=== PATIENT | female | born 1985 | race Caucasian/White ===

== ENCOUNTER → 2020-03-30 09:02 | Outpatient (CLI) | payer MEDICAID, SELFPAY ==
[2020-03-30 08:02] VITALS: BMI 28.5
[2020-03-30 10:52] LABS: Absolute Lymphocyte Count 1.86 X10^3/uL (0.83-4.51); Absolute Neutrophil Count 6.4 X10^3/uL (2.0-7.7); Basophil# 0.02 X10^3/uL; Basophil% 0.2 % (0-1); Eosinophil# 0.11 X10^3/uL; Eosinophils% 1.2 % (0-5); Hematocrit 41.4 % (37-47); Hemoglobin 13.2 g/dL (12.0-15.0); Lymphocyte # 1.86 X10^3/ul (4.0); Lymphocyte % 20.8 % (19-41); Mean Corp Hgb Conc 31.9 g/dL (32-36); Mean Corpuscular Hgb 27.9 pg (27.0-32.0); Mean Corpuscular Volume 87.5 fL (81-99); Mean Platelet Vol. 11.3 fl (6.2-12.0); Monocyte% 5.6 % (0-10); NRBC Flagged by Analyzer 0 % (0-5); Neutrophil # 6.44 X10^3/uL (2.7-7.7); Neutrophil % 71.9 % (47-70); Platelet Count 266 K/mm3 (150-450); RBC Distribution Width SD 40.9 fl (35.1-43.9); Red Blood Count 4.73 M/mm3 (4.2-5.4)
== END ==
PROVIDERS: PCP Family Medicine; Referring Provider Obstetrics & Gynecology; Visit Provider Obstetrics & Gynecology
DX: N93.9 Abnormal uterine and vaginal bleeding, unspecified (principal)
CPT/HCPCS: 36415; 85025

== ENCOUNTER 2020-05-08 07:27 | Day surgery (SDC) | payer MEDICAID, SELFPAY ==
[2020-03-30 08:02] VITALS: BMI 28.5
[2020-05-01 15:37] VITALS: BMI 28.5
--- NOTE | 2020-05-07 17:10 | PCM.HPOB.BLA ---
- Problem List (1) Abnormal uterine bleeding Status: Acute Comment: discussed medical vs surgical options. plan LAVH RSO cysto, SDS (2) Family history of ovarian cancer Status: Acute Comment: discussed and recommend oophorectomy due to two second degree relatives with ovarian cancer. discussed increased risk of HD, potentially reduced lifespan, plan HRT after surgery and patient wishes to proceed. History and Physical Date of Admission: 05/08/20 Intake Vital Signs 05/01/20 Height 5 ft 4 in 05/01/20 Weight: 166 lb 2 oz 05/01/20 BMI 28.5 05/01/20 BP 128/80 H 05/01/20 BMI 28.5 Intake Visit Reasons: pre op Chief Complaint: pre op LAVH Right Salpingooprectomy cystectomy Occupational Rehabilitation Aide Required: No Is patient in pain?: No Allergies No Known Allergies Allergy (Verified 05/01/20 15:38) Medications multivitamin,[id number] 1 tab PO DAILY 05/01/20 [History Confirmed 05/01/20] Is last menstrual period known: No Post menopausal: No Patient : No : No PFSH Medical History (Updated 05/01/20 @ 15:[address] Clarisa [address] MD) PRISCILLA I (cervical intraepithelial neoplasia I) (Acute) Abnormal colonoscopy (Acute) Abnormal uterine bleeding (AUB) (Acute) Anemia (Acute) H/O transfusion of whole blood (Acute) Mass of colon (Acute ~2017) Mass of ovary (Acute) Ovarian cyst (Acute) Surgical History delivery delivered (Acute) H/O dilation and curettage (Acute) H/O oophorectomy (Acute ~01/2010) Family History Grandmother Cancer cervical and ovarian cancer Grandmother Cancer cervical, uterine and ovarian Social History (Updated 05/01/20 @ 15:[address] Clarisa [address] MD) adopted: No household members: family number of children: 2 current occupation: self employed pets and animals: Yes history of recent travel: No sexually active: Yes Smoking Status: Never smoker second hand exposure: No alcohol intake: never substance use type: does not use seatbelt use: always do you feel safe at home: Yes additional social history: - Rudy HPI pre op: Details: GLADYS STEPHENSON is a 34 year old who presents for preop visit. she is having a LAVH due to abnormal bleeding and oophorectomy due to cyst and family history of ovarian cancer. Pregancy History 2 Elective abortions Hx Para 2 Spontaneous abortions Hx # Term Pregnancies Ectopic pregnancies Hx # Pregnancies Multiple births # of living children 2 Past Pregnancies Del. Date Name GA/Weeks Outcome Route Bth Weight Gen Labor Lgth Anesthesia Del Locatn Provider FOB Unknown 03/01/2013 Jaden 39 live - full term vacuum 9lbs 10oz Male none Darling Grant Unknown 08/22/14 Radha 37 live - full term 9lbs 9oz Female spinal Darling Grant Delivery Date: On 03/30/20 @ 08:13 Jennyfer Diallo Vacuum delivery; 4 degree tear Delivery Date: No notes to display ROS Const Constitutional: Reports fatigue; denies fever(s), headache(s), increased appetite, poor appetite, weight gain or weight loss ENT ENT: Denies dizziness or dry mouth Cardio Card: Denies chest pain Resp Resp: Denies cough or dyspnea GI GI: Reports as per HPI and abdominal pain; denies constipation, nausea or vomiting : Reports as per HPI and urinary frequency; denies difficulty urinating, painful urination, pelvic pain, urinary incontinence, urinary hesitancy, urinary urgency, vaginal discharge, vaginal dryness, vaginal odor or vaginal itching Musc Musc: Denies joint pain, back pain or muscle weakness Skin Skin/Breast: Denies hair loss, change in hair, dry skin, breast lump, breast pain or breast skin changes Neuro Neuro: Denies dizziness Psych Psych: Denies anxiety or depression Endo Endo: Denies cold intolerance, excessive sweating, heat intolerance or increased thirst Frankie/Lymph Hematologic/Lymphatic: Denies easy bleeding, Denies easy bruising, Denies enlarged lymph nodes Exam Const General: cooperative, healthy appearing, comfortable, no acute distress, well developed Nutritional Appearance: average body habitus Orientation: alert [facility] Head: normal to inspection, normocephalic Ears: hearing grossly normal bilaterally, external ears normal Nose: external nose normal, nares normal Face and sinus: normal facial exam Neck Neck: normal visual inspection, no lymphadenopathy, trachea midline Thyroid: thyroid normal Chest Chest palpation & inspection: normal inspection of the chest Resp Effort & Inspection: normal respiratory effort Auscultation: clear to auscultation bilaterally Cardio Rate: regular rate Rhythm: regular rhythm Heart Sounds: S1 normal, S2 normal GI Inspection: normal to inspection, non-distended Palpation: soft, no hepatosplenomegaly General: bladder normal to palpation External Female Exam: normal external appearance, normal appearance of the urethra Urethra: normal appearance of the urethra Speculum Exam - Vagina: normal appearance of the vagina, normal vaginal discharge Speculum Exam - Cervix: normal appearance of the cervix, nontender Bimanual Exam- Vagina & Uterus: bladder normal to palpation, No cervical tenderness Bimanual Exam- Adnexa, other: normal adnexae, adnexae mobile, no adnexal masses, pelvic support normal Pelvic Support: normal Musc Cervical Spine: other Other: gross motor intact no deficits, full bilateral strength Skin General: no rashes or lesions noted Neuro General: alert, awake, moves all extremities, no focal motor deficits Motor: muscle tone normal throughout Extrem General: normal to inspection, no pedal edema Psych Appearance: grossly normal Mental Status: mental status grossly normal Affect: normal affect Speech and Movement: speech and movement normal Assessment & Plan Problems 1. Abnormal uterine bleeding N93.9 discussed medical vs surgical options. plan LAVH RSO cysto, SDS 2. Family history of ovarian cancer Z80.41 discussed and recommend oophorectomy due to two second degree relatives with ovarian cancer. discussed increased risk of HD, potentially reduced lifespan, plan HRT after surgery and patient wishes to proceed. Plan After discussing the patient's diagnosis and treatment plan options, patient wishes to proceed with surgical management. I have discussed with the patient the risks, benefits, and alternatives of the procedure which include but are not limited to risks of anesthesia, bleeding, infection, possible damage to bowel, bladder, or surrounding vasculature which could lead to additional surgery to evaluate any complications. Patient agrees to procedure and wishes to proceed. ACOG/uptodate references given for additional information regarding procedure. Coding Level of Care Code No Charge Diagnoses Abnormal uterine bleeding N93.9 Family history of ovarian cancer Z80.41 UPDATE- I have seen the patient and performed any clinically relevant updates to the history and physical exam. Clarisa Way MD
[2020-05-08] VITALS (14 sets, daily range): BP systolic 100–124; BP diastolic 57–77; PULSE 68–92; RESP 14–16; TEMP 36.6–37.4; O2SAT 98–100; BMI 28.8
--- NOTE | 2020-05-08 | HYST_PTH ---
PATIENT: GLADYS STEPHENSON LOC: [facility] [place] U#:[id number] AGE/SX: 34/F ROOM: RE05/08/[address]: Dr. Clarisa Way MD : 1985 BED: DIS: 05/08/2020 SPEC #: [id number] RECD: 05/08/20 14:06 STATUS: ÁLVARO CUCO #: [id number] BEBETO: 05/08/20 00:[address]: Clarisa Way DEPT: SURGICAL PATHOLOGY RECD BY: Darien uGtierres ENTERED: 05/08/20 14:06 SP TYPE: HYSTERECT OTHR DR: MD Dr. Osman Fuentes MD Tissues: Uterus, NOS Procedures: Surgery Specimen Level V HEADER OPERATION: ERAS, hysterectomy, LAVH, right salpingo-oophorectomy, cysto PRE-OP DIAGNOSIS: Abnormal uterine bleeding TISSUE SUBMITTED: Uterus, right fallopian tube and ovary MICROSCOPIC DIAGNOSIS Uterus, right fallopian tube and ovary, hysterectomy and bilateral salpingo-oophorectomy: Cervix - mild chronic cystic cervicitis. Endometrium - secretory endometrium. Myometrium - focal superficial adenomyosis. Right fallopian tube - no pathologic diagnosis. Right ovary - physiologic follicular cysts and corpus luteum. SJ:jose 05/09/20 MICROSCOPIC DESCRIPTION Slides are reviewed. GROSS DESCRIPTION Received in fixative is one container labeled with the patient's name and designated uterus, right fallopian tube and ovary. The specimen consists of a hysterectomy specimen consisting of uterus with cervix and attached right fallopian tube and ovary. The uterus with cervix weighs 151 gm and measures 10.5 x 7.5 x 5 cm. The serosal surface is conway, glistening. The ectocervical mucosa is unremarkable. The external os is circular in contour. The endocervical canal measures 3.5 cm in length and the endocervical mucosa is conway, glistening and unremarkable. The triangular endometrial cavity measures 5 cm in length and up to 3.5 cm in width. The endometrium is conway, glistening and measures up to 0.5 cm in thickness. Section of the uterine wall does not reveal any mass lesion and it measures up to 0.5 cm in thickness. The right fallopian tube measures 6 cm in length and 0.6 cm in diameter. The fimbrial end is identified. The proximal portion of the fallopian tube shows a Filshie clip that appears intact. The soft to cystic right ovary measures 5 x 3 x 3 cm. Section of the ovary reveal a corpus luteum measuring 2 cm in greatest dimension and multiple cysts filled with clear fluid, largest measuring 1 cm in greatest dimension. Dextrine Mixer sections are submitted in nine cassettes as follows: 1 - anterior cervix, 2 - posterior cervix, 3 & 4 - anterior uterine wall, 5 & 6 - posterior uterine wall, 7 - right fallopian tube, 8 & 9 - right ovary. / AMAURI:jose 05/08/20 TC:5 CPT: 43735
[2020-05-08] MEDS: dexAMETHasone 10 MG/ML Vial 8 MG IV (07:00)
[2020-05-08 08:02] LABS: Hematocrit 39.4 % (37-47); Hemoglobin 12.9 g/dL (12.0-15.0); Mean Corp Hgb Conc 32.7 g/dL (32-36); Mean Corpuscular Hgb 28.8 pg (27.0-32.0); Mean Corpuscular Volume 87.9 fL (81-99); Mean Platelet Vol. 11.2 fl (6.2-12.0); Platelet Count 184 K/mm3 (150-450); RBC Distribution Width CV 12.3 % (11.6-14.6); RBC Distribution Width SD 39.3 fl (35.1-43.9); Red Blood Count 4.48 M/mm3 (4.2-5.4); White Blood Count 5.7 K/mm3 (4.4-11.0)
[2020-05-08 08:10] LABS: Internal QC Validated? YES +Cl - CLEAR BKGD; Pregnancy, Urine Negative Negative
[2020-05-08 08:11] LABS: Magnesium 2.2 mg/dL (1.6-2.6)
[2020-05-08] MEDS: Phenazopyridine 95 MG Tablet 190 MG PO (08:25)
[2020-05-08] MEDS: Acetaminophen 500 MG Tablet 1000 MG PO ×2 (08:26→14:30)
[2020-05-08] MEDS: Celecoxib 200 MG Capsule 400 MG PO (08:26)
[2020-05-08] MEDS: Gabapentin 600 MG Tablet PO (08:26)
[2020-05-08] MEDS: Scopolamine 1mg/72hr Patch 1 PATCH TRANSDERM. (08:27)
[2020-05-08] MEDS: Enoxaparin 40 MG/0.4 ML Syringe SC (08:31)
[2020-05-08] MEDS: Lactated Ringers 1,000 ML 40 ML IV (09:00)
[2020-05-08 09:10] LABS: Bedside Glucose 104 mg/dL (70-110)
--- NOTE | 2020-05-08 09:30 | OP.PCM_ITS ---
Problem List (1) Abnormal uterine bleeding Status: Acute Comment: discussed medical vs surgical options. plan LAVH RSO cysto, SDS (2) Family history of ovarian cancer Status: Acute Comment: discussed and recommend oophorectomy due to two second degree relatives with ovarian cancer. discussed increased risk of HD, potentially reduced lifespan, plan HRT after surgery and patient wishes to proceed. Report of Operation Date of Procedure: 05/08/20 Pre-Operative Diagnosis: AUB, family history ovarian cancer Post-Operative Diagnosis: same Surgery/Procedure Performed:: lavh RSO cysto Description of Surgical Findings:: pelvic congestion, anterior scar tissue production cook: Alyssa Whitley Type of Anesthesia:: General Special Medications: flor Specimen's removed: uterus tube ovary Drains: clarke removed at the end of procedure Estimated Blood Loss (mL): 100 Fluids Replaced: crystalloid Description of Procedure: Patient received preoperative antibiotics and SCDs were on preoperatively. Patient was taken back to the operating room and placed in the dorsal lithotomy position. General anesthesia was induced and patient was prepped and draped in normal sterile fashion. Uterine manipulator was placed inside the uterus and Clarke catheter placed in the bladder. The umbilicus was grasped with towel clamps and an intraumbilical incision was made after injecting with quarter percent Marcaine and a Veress needle entered into the abdomen confirmed to be intra-abdominal with a low opening pressure. Abdomen was insufflated with CO2 gas and the Veress needle removed and the 5 mm trocar was placed under direct visualization without complication. Right and left lower quadrants were transilluminated and injected with quarter percent Marcaine and 5 mm ports placed under direct visualization. Pelvis was well visualized see operative findings for additional information. right ovary and fallopian tube was identified and transected with the LigaSure device across the IP ligament and then to the level of the utero-ovarian ligament which was also transected with the LigaSure device. The broad ligament was opened up by transecting the round ligament bilaterally and skeletonizing the uterine vessels bilaterally and creating a bladder flap using the LigaSure device. The uterine arteries were transected bilaterally with good visualization of the bladder and the ureters were seen to be inferior lateral to the operative area. Attention was then paid to the vaginal portion of the procedure and the cervix was grasped with Kathy clamps and circumferentially injected with dilute vasopressin. A circumferential incision was made and the vaginal mucosa was mobilized off poste riorly and the cul-de-sac entered into sharply and a longneck speculum placed. The anterior cul-de-sac was then identified and entered into sharply. The uterosacral ligaments were clamped cut and suture ligated with 0 Monocryl bilaterally followed by the cardinal ligaments which were clamped cut and suture ligated bilaterally with 0 Monocryl. The uterus serially descended and was removed without difficulty with minimal morcellation. Pelvic sidewall pedicles were checked and noted to have excellent hemostasis. The vaginal mucosa was reapproximated incorporating the posterior peritoneum. This was reapproximated using 0 Vicryl [id number]-by-unwdk sutures. Excellent hemostasis was noted. The cystoscopy was then performed and right ureteral strong spray was noted and the bladder was noted to have no abnormality or lesions seen. The left ureter was able to be visualized peristalsing or patent and therefore urogynecology was consulted for intraoperative stent placement which was done under direct visualization both laparoscopically and cystoscopy in the stent was placed easily and noted to be draining and lateral to the operative area seen laparoscopically. Clarke catheter was replaced and then attention paid to the abdominal portion of the procedure again. The pelvis and cul-de-sac was well visualized and no significant active bleeding noted but some raw areas were seen on the peritoneum and therefore Flor was applied. Pressure was taken down and the areas visualized and noted of excellent hemostasis. All ports were removed under direct visualization without complication and the abdomen was desufflated of air. The instruments removed from the abdomen and the vagina vaginal sweep was negative. Stent and catheter were removed without difficulty. Port sites on the abdomen were closed with 4-0 Monocryl interrupted sutures and Steri's and windows were applied. She was awoken and taken recovery in stable condition. Grafts/Implants Used: none - Complications none - Admit VTE Documentation VTE Present on Admission: No VTE Mechan Device Prophylaxis: SCD's VTE Pharm Prophylaxis ordered?: Yes Multi Select Codes - Urinary/Genital Urinary/Genital CPT Codes: 00041 Cystoscopy, 27618 LAVH+BS/O <250gr Uterus
--- NOTE | 2020-05-08 09:34 | PCM.DC.VHY ---
Discharge Diet: No Restrictions Discharge Activity: Return to Normal Activity, May Not Drive, May Shower May resume sexual activity in: 6-8 weeks Call your doctor if your incision/area has: Continuous Slow Oozing, Sudden Increased Bleeding, Increased Pain/ Swelling, Increased Redness, Foul Smelling Discharge Call your doctor if you observe: Fever of 101 or Higher, Inability to urinate, Inability to have a bowel movement, Using more than one pad per hour Allergies/Adverse Reactions: Allergies No Known Allergies Allergy (Verified 05/02/20 10:28) Medications to take at Discharge multivitamin,[id number] 1 tab PO DAILY 05/01/20 Naproxen [Naprosyn] 250 - 500 mg PO Q8H PRN PRN #30 tab 05/08/20 Oxycodone HCl/Acetaminophen [Percocet 5-325] 1 - 2 tablet PO Q6H PRN PRN 7 Days #15 tablet 05/08/20 The following prescriptions were given: Naproxen [Naprosyn] 250 - 500 mg PO Q8H PRN PRN #30 tab PRN Reason: MILD PAIN Transmission Status: Pending to [facility] Oxycodone HCl/Acetaminophen [Percocet 5-325] 1 - 2 tablet PO Q6H PRN PRN 7 Days #15 tablet PRN Reason: Pain Transmission Status: Sent to [facility] Primary Care Physician: Osman Taylor MD [Primary Care Provider] - Test Results: Test results from this visit will be discussed in further detail at your follow-up appointment, if applicable. Please Follow Up With: Clarisa Way MD - [phone]
[2020-05-08] MEDS: Cefazolin 2 GM in 0.9% Normal Saline 100 ML IV (09:50)
[2020-05-08] MEDS: Bupivacaine 0.25% 30 ML Vial (10:30)
[2020-05-08] MEDS: Vasopressin 20 UNITS/ML Vial (10:55)
[2020-05-08] MEDS: Lactated Ringers 1,000 ML 70 ML IV ×2 (11:15→12:00)
[2020-05-08] MEDS: Ketorolac 30 MG/ML Syringe IV ×2 (12:26→17:50)
[2020-05-08] MEDS: Ondansetron 4 MG/2 ML Vial IV (12:26)
--- NOTE | 2020-05-08 13:01 | PCM.OPRPT ---
Problem List (1) Family history of ovarian cancer Status: Acute Comment: discussed and recommend oophorectomy due to two second degree relatives with ovarian cancer. discussed increased risk of HD, potentially reduced lifespan, plan HRT after surgery and patient wishes to proceed. (2) Abnormal uterine bleeding Status: Acute Comment: discussed medical vs surgical options. plan LAVH RSO cysto, SDS Report of Operation Date of Procedure: 05/08/20 Pre-Operative Diagnosis: abnormal uterine bleeding Post-Operative Diagnosis: same Surgery/Procedure Performed:: cystoscopy, left ureteral catheterization Type of Anesthesia:: General Specimen's removed: none Description of Procedure: The patient is a 34-year-old female undergoing a hysterectomy laparoscopic assisted per Dr. Dave Glasgow. There is a question of the position of the left ureter and a request was placed for ureteral catheter insertion. A cystourethroscopy was performed with a 70 degree lens, through the urethra, revealing no evidence of bladder injury, foreign body or mucosal abnormality. The left ureteral orifice was easily identified and intubated with a 5 [place] whistle-tip catheter. It was easily inserted and was put into 20 cm. The ureter was identified through the laparoscope and was found to be intact. At this time the Wallace catheter was placed and my portion of the procedure was ended. The ureteral catheter was left to be removed with the Wallace catheter. - Complications none - Admit VTE Documentation VTE Present on Admission: Yes VTE Mechan Device Prophylaxis: SCD's
[2020-05-08] MEDS: oxyCODONE 5 MG Tablet PO ×2 (14:30→15:42)
[2020-05-08 15:17] LABS: Hematocrit 37.7 % (37-47); Hemoglobin 12.5 g/dL (12.0-15.0); Mean Corp Hgb Conc 33.2 g/dL (32-36); Mean Corpuscular Hgb 29.3 pg (27.0-32.0); Mean Corpuscular Volume 88.5 fL (81-99); Mean Platelet Vol. 11.7 fl (6.2-12.0); Platelet Count 186 K/mm3 (150-450); RBC Distribution Width CV 12.6 % (11.6-14.6); RBC Distribution Width SD 39.9 fl (35.1-43.9); Red Blood Count 4.26 M/mm3 (4.2-5.4); White Blood Count 15.1 K/mm3 (4.4-11.0)
== END 2020-05-08 18:15 | disposition home or self-care (01) ==
LOC: SDC 07:29 → AC 07:30
PROVIDERS: Anesthesiology; PCP Family Medicine; Referring Provider Obstetrics & Gynecology; Visit Provider Obstetrics & Gynecology
PROC: 0UT9FZZ Resection of Uterus, Via Natural or Artificial Opening With Percutaneous Endoscopic Assistance (ICD-10-PCS; CPT 58552; principal; 2020-05-08 09:10)
DX: N93.9 Abnormal uterine and vaginal bleeding, unspecified (principal); N72 Inflammatory disease of cervix uteri; N80.0 Endometriosis of uterus; Z80.41 Family history of malignant neoplasm of ovary
CPT/HCPCS: 00940; 52000; 58552; 36415; 81025; 82962; 83735; 85027; 86850; 86900; 86901; 87635; 88307; G2023; J7120; C1758; J2405; U0003

== ENCOUNTER → 2020-05-24 14:38 | Outpatient (CLI) | payer MEDICAID, SELFPAY ==
[2020-05-24 14:12] VITALS: BMI 29.0
[2020-05-24 15:17] LABS: Estradiol < 11.0 pg/mL; Follicle Stimulating Hormone 49.2 mIU/mL
== END ==
PROVIDERS: PCP Family Medicine; Referring Provider Obstetrics & Gynecology; Visit Provider Obstetrics & Gynecology
DX: N93.9 Abnormal uterine and vaginal bleeding, unspecified (principal)
CPT/HCPCS: 36415; 82670; 83001

== ENCOUNTER → 2021-04-02 10:48 | Outpatient (CLI) | payer MEDICAID, SELFPAY ==
[2021-04-02 10:59] LABS: Absolute Lymphocyte Count 1.71 X10^3/uL (0.83-4.51); Absolute Neutrophil Count 3.7 X10^3/uL (2.0-7.7); Basophil# 0.02 X10^3/uL; Basophil% 0.3 % (0-1); Eosinophils% 1.7 % (0-5); Hematocrit 39.7 % (37-47); Hemoglobin 13.1 g/dL (12.0-15.0); Lymphocyte # 1.71 X10^3/ul (0.83-4.51); Lymphocyte % 28.6 % (19-41); Mean Corpuscular Hgb 27.8 pg (27.0-32.0); Mean Corpuscular Volume 84.1 fL (81-99); Mean Platelet Vol. 11.2 fl (6.2-12.0); Monocyte# 0.45 X10^3/uL; Monocyte% 7.5 % (0-10); NRBC Flagged by Analyzer 0 % (0-5); Neutrophil # 3.68 X10^3/uL (2.7-7.7); Neutrophil % 61.6 % (47-70); Platelet Count 242 K/mm3 (150-450); RBC Distribution Width SD 39.8 fl (35.1-43.9); Red Blood Count 4.72 M/mm3 (4.2-5.4)
[2021-04-02 11:32] LABS: Estradiol 41.7 pg/mL; Follicle Stimulating Hormone 48.3 mIU/mL; T4 Free Direct 0.91 ng/dL (0.76-1.46); Thyroid Stim Hormone (TSH) 0.86 uIU/mL (0.358-3.74)
[2021-04-04 12:24] LABS: Vitamin D,25 Hydroxy 45.8 ng/mL
== END ==
PROVIDERS: PCP Family Medicine; Referring Provider Obstetrics & Gynecology; Visit Provider Obstetrics & Gynecology
DX: N95.1 Menopausal and female climacteric states (principal)
CPT/HCPCS: 36415; 82306; 82670; 83001; 84439; 84443; 85025

== ENCOUNTER → 2023-01-14 | Outpatient (CLI) | payer MEDICAID, SELFPAY ==
--- NOTE | 2023-01-14 11:38 | BD_ITS ---
STUDY: DUAL ENERGY X-RAY ABSORPTIOMETRY / DXA REASON FOR EXAM: Female, 37 years old. Premature menopause TECHNIQUE: Bone Mineral Density (BMD) measurements of lumbar spine and bilateral hips were obtained. COMPARISON: None. FINDINGS: Lumbar Spine (L1-L4): g/cm2 (1.062) / T-score (0.1) / Z-score (0.3) Findings are suggestive of normal bone density with a low fracture risk. Left Femur Total: g/cm2 (0.872) / T-score (-0.6) / Z-score (-0.5) Left Femoral Neck: g/cm2 (0.750) / T-score (-0.9) / Z-score (-0.7) Right Femur Total: g/cm2 (0.881) / T-score (-0.5) / Z-score (-0.4) Right Femoral Neck: g/cm2 (0.726) / T-score (-1.1) / Z-score (-0.9) BD/Dexa Bone Density Study IMPRESSION: The patient is considered osteopenic as outlined below according to World Fabian Organization (WHO) criteria with a low fracture risk. Reference Information: The T-score is the number of standard deviations above or below the standard which is normal for young adults at their peak bone mineral density. The World Health Organization (WHO) interprets the T-scores as follows: Above -1 Normal bone density Between -1 and -2.5 Osteopenia Equal to / or below -2.5 Osteoporosis As a practical clinical guideline, osteopenia may be graded as follows: Mild -1 through -1.5 Moderate -1.6 through -2.0 Severe -2.1 through -2.4 The Z-score is the number of standard deviations above or below age-matched controls. A Z-score of less than -1.5 would be considered abnormal. References: 1. NIH Osteoporosis and Related Bone Diseases www osteo.org 2. International Society for Clinical Densitometry www iscd.org 3. National Osteoporosis Foundation www nof.org Electronically Signed: Michele Mcnamara MD at 8:15 EST ,
== END | disposition home or self-care (01) ==
LOC: OPBD 11:30
PROVIDERS: PCP Family Medicine; Referring Provider Obstetrics & Gynecology; Visit Provider Obstetrics & Gynecology
DX: E28.319 Asymptomatic premature menopause (principal)
CPT/HCPCS: 77080

== ENCOUNTER → 2023-01-23 | Outpatient (CLI) | payer MEDICAID, SELFPAY ==
--- NOTE | 2023-01-23 16:51 | MRI_ITS ---
EXAM: MR LUMBAR SPINE WITHOUT INTRAVENOUS CONTRAST CLINICAL INDICATION: pain TECHNIQUE: Multiplanar and multisequence MR images of the lumbar spine without intravenous contrast. This report was created using Exec report Planana technology. COMPARISON: None. FINDINGS: VERTEBRAE: Unremarkable. Vertebral body heights are preserved. Normal vertebral bodies and posterior elements. Normal alignment. No spondylolisthesis. There is preservation of the normal lumbar lordosis. SPINAL CORD: Unremarkable. Normal position and signal intensity of the conus medullaris. SOFT TISSUES: Unremarkable. DISCS/SPINAL CANAL/NEURAL FORAMINA: L1-L2: Unremarkable. Normal disc height and morphology. Normal spinal canal and lateral recesses. Normal neuroforamina. L2-L3: Unremarkable. Normal disc height and morphology. Normal spinal canal and lateral recesses. Normal neuroforamina. L3-L4: Unremarkable. Normal disc height and morphology. Normal spinal canal and lateral recesses. Normal neuroforamina. L4-L5: Moderate left paracentral/neuroforaminal asymmetric disc bulge causing mild central canal stenosis on the left, mild left neural foraminal stenosis, and contacting the traversing left L5 nerve roots. L5-S1: Unremarkable. Normal disc height and morphology. Normal spinal canal and lateral recesses. Normal neuroforamina. MRI/Spine Lumbar (Routine) IMPRESSION: Moderate left paracentral/neuroforaminal asymmetric disc bulge at L4/5 causing mild central canal stenosis on the left, mild left neural foraminal stenosis, and contacting the traversing left L5 nerve roots. Otherwise unremarkable MR evaluation of the lumbar spine. Electronically Signed: Sergei Hernandez MD at 4:50 EDT ,
== END | disposition home or self-care (01) ==
LOC: MRI 16:51
PROVIDERS: PCP Family Medicine; Visit Provider Orthopaedic Surgery
DX: M53.3 Sacrococcygeal disorders, not elsewhere classified (principal); M46.1 Sacroiliitis, not elsewhere classified; M54.50 Low back pain, unspecified; G89.29 Other chronic pain
CPT/HCPCS: 72148

== ENCOUNTER → 2025-01-26 | Outpatient (CLI) | payer MEDICAID, OTHER, SELFPAY ==
--- NOTE | 2025-01-26 10:00 | BI_ITS ---
PROCEDURE: SCRN MAMM (CAD)W/TRICIA BILAT REASON FOR EXAM: F, Age 39 y/o , SCREENING MAMMOGRAM. No family history. TECHNIQUE: Bilateral screening digital breast tomosynthesis with 2D and 3D images. Computer aided detection. COMPARISON: None. This is a baseline mammogram. FINDINGS: The breasts are heterogeneously dense which may obscure small masses. There is a faint 6.6 mm x 4.7 mm nodule in the deep central lateral aspect of the right breast. Correlation with ultrasound is recommended. No suspicious masses, areas of developing architectural distortion, or suspicious calcifications. BI/SCRN MAMM (CAD)W/TRICIA BILAT IMPRESSION: BI-RADS 0: INCOMPLETE - NEED ADDITIONAL IMAGING EVALUATION. Follow-up code: Ultrasound Recommended The patient will be notified of the results by letter. BREAST CANCER RISK ASSESSMENT: Not assessed. Reading Location: [place] [address]
[2025-01-26 10:14] LABS: Cholesterol 163 mg/dL (<=200); Glucose 95 mg/dL (70-99); High Density Lipoprotein 60 mg/dL; Low Density Lipoprotein Calc. 83 mg/dL; Triglycerides 101 mg/dL; Very Low Density Lipoprotein 20 mg/dL (5-40); cholesterol:hdl ratio screen 2.74
== END | disposition home or self-care (01) ==
PROVIDERS: PCP Family Medicine; Referring Provider Obstetrics & Gynecology; Visit Provider Obstetrics & Gynecology
DX: Z12.31 Encounter for screening mammogram for malignant neoplasm of breast (principal); M85.80 Other specified disorders of bone density and structure, unspecified site; E89.40 Asymptomatic postprocedural ovarian failure; Z13.220 Encounter for screening for lipoid disorders; Z13.29 Encounter for screening for other suspected endocrine disorder; Z13.1 Encounter for screening for diabetes mellitus
CPT/HCPCS: 36415; 77063; 77067; 80061; 82306; 82947; 84443

== ENCOUNTER → 2025-02-02 | Outpatient (CLI) | payer MEDICAID, OTHER, SELFPAY ==
--- NOTE | 2025-02-02 08:53 | US_ITS ---
PROCEDURE: BREAST LIMITED UNILATERAL 02/02/2025 REASON FOR EXAM: 39-year-old female presents for follow-up of the right breast mass seen on the examination of 01/26/2025. No family history of breast cancer. TECHNIQUE: Targeted right breast ultrasound. COMPARISON: Mammogram 01/26/2025 FINDINGS: Right breast ultrasound was targeted to the lateral. There is a cyst/cyst cluster in the right breast at 9 o'clock 5 cm from the nipple measuring 0.7 x 0.7 x 0.4 cm, this is the likely correlate for the mammographic finding. Also, in the adjacent breast tissue there is another smaller cyst at 10 o'clock 3 cm from the nipple measuring 0.5 x 0.5 x 0.2 cm. US/Breast Limited Unilateral IMPRESSION: Benign right breast cyst and cyst cluster. BI-RADS 2: BENIGN. RECOMMEND ANNUAL MAMMOGRAPHIC SCREENING. Follow-up code: Routine Follow-up Reading Location: [id number]
== END | disposition home or self-care (01) ==
LOC: OPUS 08:52
PROVIDERS: PCP Family Medicine; Referring Provider Obstetrics & Gynecology; Visit Provider Obstetrics & Gynecology
DX: R92.8 Other abnormal and inconclusive findings on diagnostic imaging of breast (principal); N63.10 Unspecified lump in the right breast, unspecified quadrant
CPT/HCPCS: 76642